=== PATIENT | male | born 1970 | race Caucasian/White ===

== ENCOUNTER 2018-05-23 05:08 | Emergency (ER) | payer BC ==
[2018-05-23] MEDS ORDERED: Nitroglycerin 0.4 MG TAB (25 Tab Bottle) ONE (05:20)
[2018-05-23 05:37] LABS: #Basophils 0.1 thou/uL (0.0-0.2); #Eosinphils 0.1 thou/uL (0.0-0.7); #Lymphocytes 3.2 thou/uL (1.20-3.40); #Monocytes 0.6 thou/uL (0.11-0.59); #Neutrophils 3.3 thou/uL (1.40-6.50); %Basophils 1.7 % (0.0-1.0); %Eosinophils 1.1 % (0.0-10.0); %Lymphocytes 43.6 % (21.0-51.0); %Monocytes 7.7 % (0.0-10.0); Hemoglobin 19.5 g/dL (14.0-18.0); Mean Corpuscular HGB CONC 34.7 g/dL (32.0-36.0); Mean Corpuscular Hemoglobin 28.6 pg (27.0-31.0); Mean Corpuscular Volume 82.4 fL (78.0-98.0); Mean Platelet Volume 5.6 fL (7.4-10.4); Platelet Count 353 thou/uL (130-400); Red Blood Cell (RBC) Count 6.82 mill/uL (4.70-6.10); White Blood Cell (WBC) Count 7.3 thou/uL (4.8-10.8)
[2018-05-23 05:50] LABS: ALT (SGPT) 41 U/L (8-55); AST (SGOT) 15 U/L (5-34); Albumin 4.5 g/dL (3.5-5.0); Alkaline Phosphatase 71 U/L (40-150); Anion Gap 13 mmol/L (10-20); BUN (Urea Nitrogen) 27 mg/dL (8.9-20.6); Bilirubin, Total 0.9 mg/dL (0.2-1.2); Calc. Creatinine Clearance 0 mL/min (70-130); Carbon Dioxide 28 mmol/L (22-29); Chloride 102 mmol/L (98-107); Estimated GFR-MDRD 60; Globulin 2.9 g/dL (2.4-3.5); Glucose 98 mg/dL (70-105); Protein, Total 7.4 g/dL (6.0-8.3); Sodium 139 mmol/L (136-145)
[2018-05-23 05:52] LABS: Troponin I Less than 0.010 ng/mL (< 0.028)
[2018-05-23 06:54] LABS: Cardiac Risk 4.9 (Less than 4.5)
[2018-05-23] MEDS ORDERED: Acetaminophen 500 MG TAB ONE (08:34)
[2018-05-23 08:48] LABS: CKMB 0.9 ng/mL (0-6.6); Troponin I Less than 0.010 ng/mL (< 0.028)
--- NOTE | 2018-05-23 08:54 | RAD ---
PA AND LATERAL CHEST: History: Chest pain. FINDINGS: The heart size is normal. The lungs are expanded without lobar consolidation, pneumothoraces or pleur al effusions. Degenerative changes in the spine. IMPRESSION: No acute process. POS: [facility]
[2018-05-23 11:45] LABS: CKMB 0.8 ng/mL (0-6.6); Troponin I Less than 0.010 ng/mL (< 0.028)
--- NOTE | 2018-06-02 14:23 | EKG ---
Test Reason : CHESTPAIN Blood Pressure : / mmHG Vent. Rate : 075 BPM Atrial Rate : 075 BPM P-R Int : 158 ms QRS Dur : 088 ms QT Int : 372 ms P-R-T Axes : 031 025 047 degrees QTc Int : 415 ms Normal sinus rhythm Nonspecific T wave abnormality Incomplete right bundle branch block Abnormal ECG Reconfirmed by MARIAN Camarillo, DONN ([id number]), desk editor HAYDEE ECHEVARRIA ([id number]) on 06/02/2018 2:23:00 PM Referred By: SUSIE Confirmed By:DONN FONSECA M.D.
--- NOTE | 2018-06-15 10:54 | EKG ---
Test Reason : Blood Pressure : / mmHG Vent. Rate : 068 BPM Atrial Rate : 068 BPM P-R Int : 170 ms QRS Dur : 080 ms QT Int : 378 ms P-R-T Axes : 036 039 058 degrees QTc Int : 401 ms Normal sinus rhythm Nonspecific T wave abnormality Abnormal ECG Confirmed by FERNANDA BROOKS, ADAM ([id number]), news video editor HAYDEE ECHEVARRIA ([id number]) on 06/15/2018 10:54:21 AM Referred By: Confirmed By:ADAM MICHAEL MD
--- NOTE | 2018-06-15 10:54 | EKG ---
Test Reason : CP Blood Pressure : / mmHG Vent. Rate : 070 BPM Atrial Rate : 070 BPM P-R Int : 118 ms QRS Dur : 088 ms QT Int : 392 ms P-R-T Axes : 018 017 043 degrees QTc Int : 423 ms Normal sinus rhythm Nonspecific T wave abnormality Incomplete right bundle branch block Abnormal ECG Similar to 1st EKG Confirmed by FERNANDA BROOKS, ADAM ([id number]), rewrite editor HAYDEE ECHEVARRIA ([id number]) on 06/15/2018 10:53:36 AM Referred By: Confirmed By:ADAM MICHAEL MD
== END 2018-05-23 13:00 | disposition home or self-care (01) ==
LOC: SCSER 05:08
DX: R07.9 Chest pain, unspecified (principal); D58.2 Other hemoglobinopathies; E05.90 Thyrotoxicosis, unspecified without thyrotoxic crisis or storm; E03.9 Hypothyroidism, unspecified
CPT/HCPCS: 36415; 71046; 80053; 80061; 82553; 84443; 84484; 85025; 93005

== ENCOUNTER 2018-09-12 15:34 | Outpatient (CLI) | payer BC | END 2018-09-12 15:35 | disposition home or self-care (01) | LOC: CTENTCT 15:34 | PROVIDERS: ATTEND Specialist | DX: J32.9 Chronic sinusitis, unspecified (principal) | CPT/HCPCS: 70486 ==

== ENCOUNTER 2018-10-06 11:14 | Day surgery (SDC) | payer BC ==
[2018-10-05 12:04] VITALS: BMI 32.5
[2018-10-06] MEDS ORDERED: Oxymetazoline HCl 0.05% ( 15 ML ) ONE ×2 (12:26→12:51)
[2018-10-06] MEDS ORDERED: Lidocaine 1% w/Epinephrine 1:100K 30 ML VIAL ONE (12:51)
[2018-10-06] MEDS ORDERED: Fentanyl 100 MCG/2 ML VIAL ONE ×2 (13:29→15:56)
[2018-10-06] MEDS ORDERED: Midazolam HCl 2 mg/2 ml Vial ONE (13:31)
[2018-10-06] MEDS ORDERED: Hydrocodone-Acetamin 15 ML UDCUP ONE (17:28)
--- NOTE | 2018-10-06 20:35 | OP ---
DATE OF PROCEDURE: 10/06/2018 PREOPERATIVE DIAGNOSES: Chronic sinusitis, deviated septum, and hypertrophied inferior turbinates. POSTOPERATIVE DIAGNOSES: Chronic sinusitis, deviated septum, and hypertrophied inferior turbinates. PROCEDURES PERFORMED: 1. Bilateral nasal endoscopy with maxillary antrostomy with removal of tissue. 2. Bilateral nasal endoscopy with total ethmoidectomy. 3. Bilateral nasal endoscopy with frontal sinusotomy. 4. Bilateral nasal endoscopy with sphenoidotomy. 5. Septoplasty. 6. Bilateral nasal endoscopy with submucosal resection of interior turbinates. DESCRIPTION OF PROCEDURE: After consent was obtained, the patient was identified, brought to the operating room, and placed on the operating room table in the supine position. Consent was obtained, notifying the patient of the possibility of additional infections, bleeding, brain injury, and eye/orbital injury. The patient was placed on the operating room table, and general endotracheal anesthesia and intravenous access was obtained. The patient was then positioned, prepped and draped for endoscopic sinus surgery. Nasal preparation included trimming nasal vestibular hairs and spraying in topical Afrin. We then placed Afrin topical solution on nasal pledgets and strategically located them intranasally. The perinasal mucosa was injected with 1% lidocaine with 1:100,000 epinephrine in the submucoperichondrial plane of the septum, lateral nasal wall, and anterior to the uncinate. The patient was then prepped and draped in a sterile fashion and positioned for endoscopic sinus surgery. MAXILLARY ANTROSTOMY WITH REMOVAL OF TISSUE The uncinate was then identified and the extent of the uncinate was appreciated by out-fracturing the uncinate with the ball-tip probe. We then used the sickle blade to disarticulate the uncinate from the lateral nasal wall. This was then removed with straight biting and upbiting punches with the remaining shrouds of mucosa and bony septum removed with the micro-debrider. The natural os of the maxillary sinus was then identified and enlarged with the maxillary punches and back biting forceps. TOTAL ETHMOIDECTOMY The anterior face of the ethmoid bulla was entered and with the micro-debrider, dissection continued posteriorly to the ground lamella. The limits of dissection included the insertion of the middle turbinate, medial orbital wall, and base of skull. We similarly identified the frontal recess and removed shrouds of bone and debris in that region to obtain patency into the agger nasi region and frontal recess. We then entered the ground lamella and its anteroinferior aspect and proceeded posteriorly, opening the posterior ethmoid air-cell system. Again, the limits of dissection included the base of skull and medial orbital wall. FRONTAL SINUSOTOMY SPHENOIDOTOMY The anterior face of the sphenoid was identified and entered in its extreme anteroinferior aspect. A sphenoid punch was then used to enlarge the sphenoidotomy and no injury to the optic nerve or internal carotid artery occurred. SEPTOPLASTY After local anesthesia was infiltrated into the submucoperichondrial plane, a standard Tarnov incision was made with a #15 blade down to the level of the septal cartilage. The caudal elevator was used to elevate the mucoperichondrium from the underlying cartilage. We then proceeded beyond the bony cartilaginous junction and elevated the bony periosteum as well. Great attention was paid to the spur to prevent rent formation in the septal flap. A transcartilaginous incision was then made, while preserving an adequate dorsal and caudal cartilaginous strut for tip support. The deformed cartilage was removed and disarticulated from the bony cartilaginous junction and maxillary crest. This was placed in saline and would later be crushed and returned to the mucoperichondrial envelope. We then elevated the contralateral periosteum from the bony cartilaginous region and removed the deformed portions of the bone and bony spurs. The cartilage was then crushed and placed back into the mucoperichondrial envelope and the mucosa was re-approximated with a quilting stitch composed of rapidly absorbent gut suture. The David incision was also closed with interrupted gut suture. At the completion of the case, Barton splints were placed and suture secured to the caudal septum. SUBMUCOSAL RESECTION OF INTERIOR TURBINATES After consent was obtained, the patient was identified, brought to the operating room, and placed on the operating room table in the supine position. Consent was obtained, notifying the patient of the possibility of additional infections, bleeding, brain injury, and eye/orbital injury. The patient was placed on the operating room table, and general endotracheal anesthesia and intravenous access was obtained. The patient was then positioned, prepped and draped for endoscopic sinus surgery. Nasal preparation included trimming nasal vestibular hairs and spraying in topical Afrin. We then placed Afrin topical solution on nasal pledgets and strategically located them intranasally. The perinasal mucosa was injected with 1% lidocaine with 1:100,000 epinephrine in the submucoperichondrial plane of the septum, lateral nasal wall, and anterior to the uncinate. The patient was then prepped and draped in a sterile fashion and positioned for endoscopic sinus surgery. With the 0-degree endoscope, the patient underwent systematic nasal endoscopy. There were no suspicious internasal masses or lesions identified. We then focused our attention to the osteomeatal complex region under the middle turbinate. The inferior turbinates were visualized with a 0 degree endoscope and outfractured with a Jerod elevator. The inferior medial aspect was cauterized with the electrocautery. Hemostasis was obtained . After adequate airway was established, we turned our attention to the contralateral side and used a similar procedure. Again, a [place] elevator was used to outfracture inferior turbinates under endoscopic visualization. With a suction cautery, the free inferior medial aspect was cauterized under direct visualization along the length of the inferior turbinate. At this point, we then turned our attention to the contralateral side and proceeded with endoscopic sinus surgery. At the completion of the case, Rice keel splints were placed in the ethmoid cavities after the ethmoidectomy. There were no complications. The patient tolerated the procedure well and was discharged to the recovery room in stable condition prior to return to the preoperative day stay with ultimate discharge home. Prescriptions for pain medication and antibiotics were provided. The patient received intramuscular Depo-Medrol during the case. Job ID: [id number]
[2018-10-06] MEDS ORDERED: Ondansetron PF 4 MG/2 ML Vial ONE (22:52)
[2018-10-06] MEDS ORDERED: Lidocaine 1% PF 5 ML VIAL ONE (22:52)
[2018-10-06] MEDS ORDERED: Glycopyrrolate 0.2 MG/ML 5 ML SYRINGE ONE (22:52)
[2018-10-06] MEDS ORDERED: PROPOFOL 200 MG/20 ML VIAL ONE (22:52)
[2018-10-06] MEDS ORDERED: Dexamethasone 20 MG/5 ML VIAL ONE (22:52)
--- NOTE | 2018-10-07 15:20 | OP ---
DATE OF PROCEDURE: 10/06/2018 ADDENDUM: Regarding the frontal sinusotomy. Following the total ethmoidectomy, we proceeded superiorly towards the frontal recess. Agger nasi cells were addressed and the natural os of the frontal sinus was identified, shrouds of mucosa and fragments of bone removed, such that the frontal sinus ostium was enlarged. Following this, a curved shaver was used to remove any free fragments of bone or mucosa. We then turned our attention to the contralateral side, where similar technique was used. Again, the frontal recess was identified and the natural os was opened. Obstructing fragments of bone and mucosa were removed allowing for wide frontal sinus ostium. We then turned our attention to the septum. Job ID: [id number]
== END 2018-10-06 18:13 | disposition home or self-care (01) ==
LOC: SDC 11:14
PROVIDERS: ATTEND Specialist
PROC: 09TL0ZZ Resection of Nasal Turbinate, Open Approach (ICD-10-PCS; principal; 2018-10-06)
PROC: 09TU8ZZ Resection of Right Ethmoid Sinus, Via Natural or Artificial Opening Endoscopic (ICD-10-PCS; principal; 2018-10-06)
PROC: 09BM0ZZ Excision of Nasal Septum, Open Approach (ICD-10-PCS; principal; 2018-10-06)
PROC: 09TV8ZZ Resection of Left Ethmoid Sinus, Via Natural or Artificial Opening Endoscopic (ICD-10-PCS; principal; 2018-10-06)
DX: J32.9 Chronic sinusitis, unspecified (principal); J34.2 Deviated nasal septum; J34.3 Hypertrophy of nasal turbinates; J34.89 Other specified disorders of nose and nasal sinuses; K21.9 Gastro-esophageal reflux disease without esophagitis; E03.9 Hypothyroidism, unspecified; Z90.89 Acquired absence of other organs; Z98.890 Other specified postprocedural states; Z79.899 Other long term (current) drug therapy
CPT/HCPCS: 93005; 93010; 96374; J1100; J2001; J2250; J2405; J2704; J3010

== ENCOUNTER 2019-11-03 08:21 | Outpatient (CLI) | payer BC ==
--- NOTE | 2019-11-03 10:14 | RAD ---
2 VIEWS CHEST: Date: 11/03/2019 PROVIDED CLINICAL HISTORY: Dyspnea. FINDINGS: Comparison with 09/05/2019. Cardiac and mediastinal silhouette is within normal limits. Lungs appear clear. No pleural fluid or p neumothorax apparent. IMPRESSION: No evidence for an acute cardiopulmonary process. POS: OFF
== END 2019-11-03 08:22 | disposition home or self-care (01) ==
LOC: RAD 08:21
PROVIDERS: ATTEND Internal Medicine Critical Care Medicine
DX: R06.00 Dyspnea, unspecified (principal)
CPT/HCPCS: 71046

== ENCOUNTER 2024-03-09 15:26 | Outpatient (CLI) | payer BC | END 2024-03-09 15:27 | disposition home or self-care (01) | LOC: SCSRAD 15:26 | PROVIDERS: ATTEND Chiropractor | DX: M54.2 Cervicalgia (principal); M47.812 Spondylosis without myelopathy or radiculopathy, cervical region | CPT/HCPCS: 72040 ==